=== PATIENT | female | born 1980 | race Caucasian/White ===

== ENCOUNTER 2022-01-02 04:35 | Emergency (ER) | payer MEDICAID, SELFPAY ==
[2022-01-02 04:36] VITALS: BP 120/90; PULSE 62; RESP 16; TEMP 36.7; O2SAT 98; BMI 23.9
--- NOTE | 2022-01-02 05:00 | CT_ITS ---
STUDY: CT BRAIN WITHOUT CONTRAST REASON FOR EXAM: Female, 41 years old. headache, injury RADIATION DOSAGE (If Supplied By Facility): CTDIvol = ( 44.99 ) mGy, DLP = ( 829.85 ) mGycm TECHNIQUE: Transaxial CT imaging of the brain was performed without administration of intravenous contrast material. Individualized dose optimization techniques were used for this CT. COMPARISON: No relevant priors. FINDINGS: Normal soft tissue structures. Normal calvarium. Normal size ventricles and extra-axial spaces for the patient''s age. Normal white matter tracts of the cerebral hemispheres. Normal basal ganglia and thalami. Normal brainstem. Normal cerebellum. There is no intracranial hemorrhage. There are no findings of an acute ischemic infarction. Normal visualized paranasal sinuses. CT/Brain/Head without Contrast IMPRESSION: Normal unenhanced CT scan of the brain. Electronically Signed: Daniele Falcon MD at 5:36 EDT ,
--- NOTE | 2022-01-02 05:01 | EDS_ITS ---
HPI History of Present Illness Chief Complaint: Headache Informant: patient Narrative Narrative: Patient is a 41-year-old female with history of long COVID, migraine headaches and hypothyroid presenting with worsening headache. Patient states she had a head injury 2 to 3 days ago. She states she hit her forehead on a shelf. She notes that she was recently put on Plavix for her long COVID. She states starting yesterday she developed a headache. She took Benadryl 12.5 mg of oral Benadryl. She woke up with worsening headache. She states the headache starts from the back of her neck and goes up her head and now around to her forehead. Denies any vision changes. Does have photophobia. Headache is worse when she leans her head down. Does have nausea but no vomiting. States it feels like a typical headache but she is more concerned because she is on the Plavix and had the head injury. Has received migraine cocktail in the past. Believes that she has had akathisias with Reglan at one time. [facility] Medical History Anxiety Chest pain Depression Hypothyroidism Migraines Home Medications ascorbic acid (vitamin C) [Vitamin C] 1 g PO DAILY 01/02/22 [History Last Taken Unknown] clopidogrel [Plavix] 75 mg PO DAILY 01/02/22 [History Last Taken Unknown] fenofibrate nanocrystallized 48 mg PO DAILY 01/02/22 [History Last Taken Unknown] levothyroxine 75 mcg PO DAILY 01/02/22 [History Last Taken Unknown] Allergy/AdvReac Type Severity Reaction Status Date / Time No Known Allergies Allergy Verified 01/02/22 04:46 Social History Smoking Status: Smoker, status unknown ROS ROS ED Constitutional Constitutional ED: Denies chills or fever(s) Eyes Eyes: Reports other Details: photophobia ; Denies blurry vision or change in vision ENT ENT ED: Reports rhinorrhea; Denies ear pain or sore throat Cardiovascular Cardiovascular: Denies chest pain Respiratory/Chest Respiratory/Chest: Denies dyspnea Gastrointestinal Gastrointestinal: Reports nausea; Denies abdominal pain or vomiting Genitourinary Genitourinary ED: Denies dysuria Musculoskeletal Musculoskeletal: Denies arthralgias, myalgias or neck pain Integumentary Denies rash Neurologic Neurologic: Reports headache(s); Denies paresthesias or weakness Psychiatric Psychiatric: Reports anxiety; Denies depression EXAM Physical Exam Const Vital Signs: 01/02/22 04:36 Temperature 98.0 F Temperature Source Oral Pulse Rate 62 Respiratory Rate 16 Blood Pressure 120/90 H Blood Pressure Mean 100 Pulse Ox 98 Oxygen Delivery Method Room Air Positive well nourished and well developed General Appearance ED: well developed and NAD HEENT Reports normocephalic, TM's clear and moist mucous membranes HEENT Narrative: No hemotympanum. No signs of basilar skull fracture. atraumatic Tympanic Membrane ED: Yes TM's clear Eyes PERRL and EOMs intact bilaterally Neck supple and no meningeal signs Neck Narrative: Normal range of motion. Resp normal respiratory effort and clear to auscultation bilaterally Cardio regular rate, regular rhythm and no murmurs GI non-distended Extremity normal to inspection and full ROM General Extremety ED: Negative for edema General Extremity: Negative for edema Neuro oriented x3, CN's II-XII intact bilaterally and no sensory deficits noted Sensorium / Orientation: awake and alert Speech: speech normal Motor Exam: strength 5/5 throughout Psych mental status grossly normal Skin Lesions: no lesions Rashes: no rashes MDM MDM MDM Narrative Medical decision making narrative: Patient had low velocity head injury 3 days ago. She is now having worsening headache. Headache is most consistent with her migraines however she is on Plavix will take a head CT. Will give IV fluids and Zofran. If head CT is negative we will give IV Toradol for further headache control. CT is negative for acute process. On repeat evaluation patient does have improvement. Will be discharged home to follow-up with primary care doctor. Patient will discuss her continued need for Plavix use with her PCP. Counseled return precautions. Patient is well-appearing. I do not suspect meningitis, subarachnoid hemorrhage or more severe cause of her headache. Radiography Diagnostic Testing: Clinical Impression(s) from Imaging Studies Brain CT 01/02/22 05:00 IMPRESSION: Normal unenhanced CT scan of the brain. Electronically Signed: Daniele Falcon MD at 5:36 EDT , Discharge Plan Triage Chief Complaint: Headache ED Provider: Lady Piña Dx/Rx/DC Orders Clinical Impression: Headache, Closed head injury Instructions: ED Headache Unspecified Prescriptions: No Action ascorbic acid (vitamin C) [Vitamin C] 1,000 mg Tablet 1 g PO DAILY RF: 0 clopidogrel [Plavix] 75 mg Tablet 75 mg PO DAILY RF: 0 levothyroxine 75 mcg Tablet 75 mcg PO DAILY RF: 0 fenofibrate nanocrystallized 48 mg Tablet 48 mg PO DAILY RF: 0 Primary Care Provider: Ga Clemente Referrals: Ga Clemente MD [Primary Care Provider] - Disposition Disposition: Home, Self Care
[2022-01-02] MEDS: 0.9% Normal Saline 1,000 ML 999 ML IV (05:08)
[2022-01-02] MEDS: Ondansetron 4 MG/2 ML Vial IV (05:09)
[2022-01-02] MEDS: Ketorolac 15 MG/ML Vial IV (06:17)
[2022-01-02 06:33] VITALS: BP 127/69; PULSE 71; RESP 15; O2SAT 98
== END 2022-01-02 06:34 | disposition home or self-care (01) ==
PROVIDERS: Emergency Provider Emergency Medicine; PCP Family Medicine; Visit Provider Emergency Medicine
DX: R51.9 Headache, unspecified (principal); S09.90XA Unspecified injury of head, initial encounter; W22.09XA Striking against other stationary object, initial encounter; U09.9 Post COVID-19 condition, unspecified; R11.0 Nausea; E03.9 Hypothyroidism, unspecified; Z79.02 Long term (current) use of antithrombotics/antiplatelets; Z79.890 Hormone replacement therapy; Z79.899 Other long term (current) drug therapy
CPT/HCPCS: 70450; 96361; 96374; 96375; 99283; J7030; J2405

== ENCOUNTER 2022-02-12 05:44 | Emergency (ER) | payer MEDICAID, SELFPAY ==
[2022-02-12 05:44] VITALS: BP 112/79; PULSE 65; RESP 20; TEMP 36.6; O2SAT 100; BMI 24.1
[2022-02-12] MEDS: Amox/Clavulanate 875 MG Tablet PO (06:17)
--- NOTE | 2022-02-12 06:18 | EX.ED.VIS.UR ---
HPI HPI - URI History of Present Illness Chief Complaint: Ear Problem Informant: patient Onset/Context/Timing Onset: Today Context: - (Awoke with symptoms) Timing: Continuous Quality: Pressure, acute pain Location: Right ear Current Severity: Moderate Maximum Severity: Severe Worsened by: - (Burping, increasing air pressure in her nose by blowing against held nose) Relieved by: Not Relieved By NSAIDs (Took 800 mg this morning) Associated Symptoms Associated Symptoms: Positive for Nasal Congestion, Headache and Nonproductive cough; Negative for Shortness of Breath Narrative Narrative: Patient has had cold symptoms for the past 4 or 5 days, including hoarseness, myalgias, low-grade fever at the beginning but not since, cough is pretty minimal, but more congestion and now she woke up this morning with a terrible right earache. She can get her left ear to pop, but not the other. No otorrhea. No recent swimming. No fevers or chills or headache now. Is vaccinated against COVID, has not done a COVID test since the beginning of this illness. No known contact with anyone with COVID that she knows of. ROS ROS ED Constitutional Constitutional ED: Reports body ache(s), chills, fatigue, fever(s), headache(s) and malaise Eyes Eyes: Denies change in vision or diplopia ENT ENT ED: Reports ear pain right, hoarseness, nasal congestion and rhinorrhea; Denies sore throat Cardiovascular Cardiovascular: Denies chest pain or palpitations Respiratory/Chest Respiratory/Chest: Reports cough; Denies dyspnea or dyspnea on exertion Gastrointestinal Gastrointestinal: Reports diarrhea and nausea; Denies abdominal pain or vomiting Genitourinary Genitourinary ED: Denies dysuria or hematuria Musculoskeletal Musculoskeletal: Denies back pain or neck pain Integumentary Denies abscess or rash Neurologic Neurologic: Reports headache(s); Denies paresthesias or weakness Psychiatric Psychiatric: Denies anxiety or suicidal thoughts [facility] Medical History Anxiety Chest pain Depression Hypothyroidism Migraines Home Medications ascorbic acid (vitamin C) 1,000 mg tablet (Vitamin C) 1 g PO DAILY 01/02/22 [History Last Taken Unknown] levothyroxine 75 mcg tablet 75 mcg PO DAILY 01/02/22 [History Last Taken Unknown] amoxicillin 875 mg-potassium clavulanate 125 mg tablet 875 mg PO Q12H #20 TABLETS 02/12/22 [Rx Last Taken Unknown] tramadol 50 mg tablet 50 - 100 mg PO Q4H PRN PRN Pain 2 days #12 tabs 02/12/22 [Rx Last Taken Unknown] Allergy/AdvReac Type Severity Reaction Status Date / Time No Known Allergies Allergy Verified 01/02/22 04:46 Social History Smoking Status: Never smoker EXAM Physical Exam Const Vital Signs: 02/12/22 05:44 Temperature 97.8 F Temperature Source Oral Pulse Rate 65 Respiratory Rate 20 H Blood Pressure 112/79 Blood Pressure Mean 90 Pulse Ox 100 Oxygen Delivery Method Room Air Positive well nourished and well developed Constitutional Narrative: Malaised-appearing, no distress General Appearance ED: well developed and NAD HEENT Reports moist mucous membranes HEENT Narrative: Hoarseness of voice no stridor. Right TM bulging, purulent effusion, no perforation. Left TM mildly erythematous no bulging, no effusion. Both EACs normal, no pain with manipulation of the pinna or tragus. normocephalic and atraumatic Eyes PERRL and EOMs intact bilaterally Neck full ROM and supple Resp normal respiratory effort and clear to auscultation bilaterally Cardio regular rate, regular rhythm and no murmurs Rate: Negative for tachycardic Back/Spine no CVA tenderness General Back: other FROM Extremity normal to inspection and no calf tenderness General Extremety ED: Negative for edema, pulses abnormal or tenderness General Extremity: Negative for edema or pulses abnormal Neuro oriented x3, CN's II-XII intact bilaterally and no sensory deficits noted Sensorium / Orientation: awake and alert Motor Exam: strength 5/5 throughout Skin no rashes or lesions noted and no wounds MDM MDM MDM Narrative Medical decision making narrative: I performed a rapid COVID swab on this patient, it is negative. We are having a surge of omicron 4-5 right now. She does appear to have a right otitis media. Offered her a tramadol but she is driving home so she will take it when she gets there, start her on Augmentin and wrote her a prescription for a 10-day course, also we discussed decongestants as well. Discharge Plan Triage Chief Complaint: Ear Problem ED Provider: Neftali David Dx/Rx/DC Orders Clinical Impression: Acute right otitis media, Acute viral syndrome Instructions: ED Otitis Media Antibiotic ... Prescriptions: New tramadol 50 mg tablet 50 - 100 mg PO Q4H PRN PRN (Reason: Pain) 2 Days Qty: 12 0RF amoxicillin-pot clavulanate [amoxicillin-pot clavulanate] 875-125 mg tablet 875 mg PO Q12H Qty: 20 0RF No Action ascorbic acid (vitamin C) [Vitamin C] 1,000 mg Tablet 1 g PO DAILY levothyroxine 75 mcg Tablet 75 mcg PO DAILY Primary Care Provider: Ga Clemente Referrals: Ga Clemente MD [Primary Care Provider] - 3-5 Days if not improving Disposition Disposition: Home, Self Care
[2022-02-12 07:05] VITALS: BP 99/66; PULSE 71; RESP 18; O2SAT 98
== END 2022-02-12 07:07 | disposition home or self-care (01) ==
PROVIDERS: Emergency Provider Emergency Medicine; PCP Family Medicine; Visit Provider Emergency Medicine
DX: H66.91 Otitis media, unspecified, right ear (principal); B34.9 Viral infection, unspecified; R51.9 Headache, unspecified; R09.81 Nasal congestion; Z20.822 Contact with and (suspected) exposure to COVID-19; R05.9 Cough, unspecified; R19.7 Diarrhea, unspecified; R11.0 Nausea; E03.9 Hypothyroidism, unspecified; Z79.890 Hormone replacement therapy
CPT/HCPCS: 87811; 99282

== ENCOUNTER 2022-03-10 12:02 | Emergency (ER) | payer OTHER, MEDICAID, SELFPAY ==
[2022-03-10 12:02] VITALS: BP 114/64; PULSE 80; RESP 14; TEMP 36.5; O2SAT 98; BMI 23.6
--- NOTE | 2022-03-10 12:16 | EX.ED.DYSGE1 ---
HPI History of Present Illness Chief Complaint: Ear Problem Detail of Chief Complaint: Left ear pain Informant: patient Narrative Narrative: Patient presents the emergency department with discomfort in her left ear. Patient is concerned that she may have or may develop a rupture of her tympanic membrane. Patient states that several weeks ago she was seen in the ER with symptoms similar to what she started developing yesterday and while in the ER her tympanic membrane ruptured. Patient feels like the right tympanic membrane rupture healed and her hearing is back to normal. Patient does see an ear nose and throat physician and is scheduled to see him next week. Patient also states that 2 days ago her tested positive for COVID-19. She started with a slight sore throat yesterday. Patient also with history of her Erler Danlos syndrome. Patient believes she has eustachian tube dysfunction related to that. PFSH PFS Medical History Anxiety Chest pain Depression Hypothyroidism Migraines Home Medications ascorbic acid (vitamin C) 1,000 mg tablet (Vitamin C) 1 g PO DAILY 01/02/22 [History Last Taken Unknown] levothyroxine 75 mcg tablet 75 mcg PO DAILY 01/02/22 [History Last Taken Unknown] Allergy/AdvReac Type Severity Reaction Status Date / Time No Known Allergies Allergy Verified 03/10/22 12:05 Social History Smoking Status: Never smoker ROS ROS ED Review of Systems ROS Unobtainable: other Constitutional Constitutional ED: Reports lethargy; Denies chills, fever(s), sweats or weight loss Eyes Eyes: Denies blurry vision, change in vision or diplopia ENT ENT ED: Reports ear pain and sore throat; Denies rhinorrhea Cardiovascular Cardiovascular: Reports chest pain and racing heartbeat; Denies orthopnea Respiratory/Chest Respiratory/Chest: Reports dyspnea and dyspnea on exertion; Denies cough, orthopnea or sputum Gastrointestinal Gastrointestinal: Denies abdominal pain, diarrhea, nausea or vomiting Genitourinary Genitourinary ED: Denies dysuria, hematuria or urinary frequency Musculoskeletal Musculoskeletal: Denies arthralgias, back pain, myalgias or neck pain Integumentary Denies abscess, Abrasions or rash Neurologic Neurologic: Denies headache(s) or weakness Psychiatric Psychiatric: Denies anxiety, depression or suicidal thoughts Endocrine Endocrinology: Denies polydipsia, polyphagia or polyuria Hematologic/Lymphatic Hematologic/Lymphatic: Denies easy bleeding, easy bruising or lymphadenopathy Allergic/Immunologic Allergic/Immunologic ED: Denies mouth swelling, tongue swelling or urticaria EXAM Physical Exam Const Vital Signs: 03/10/22 12:02 Temperature 97.7 F L Temperature Source Temporal Pulse Rate 80 Respiratory Rate 14 Blood Pressure 114/64 Blood Pressure Mean 80 Pulse Ox 98 Oxygen Delivery Method Room Air Positive well nourished and well developed General Appearance ED: well developed and NAD HEENT Reports TM's clear and moist mucous membranes normocephalic and atraumatic; Negative for trauma or tenderness Tympanic Membrane ED: Yes TM's clear Eyes PERRL and EOMs intact bilaterally General Eye ED: Negative for pale conjunctiva or scleral icterus Neck no lymphadenopathy, supple and no JVD General: Negative for tenderness Chest Wall inspection of chest normal and palpation of chest normal Chest: Negative for tenderness Resp normal respiratory effort and clear to auscultation bilaterally Effort and Inspection: Negative for respiratory distress or pain with movement Auscultation: Negative for rhonchi, wheezes or diminished lung sounds Cardio regular rate, regular rhythm, S1 normal heart sound, S2 normal heart sound and no murmurs Peripheral Pulses: pulses 2+ throughout GI normal to inspection, nondistended, normoactive bowel sounds, soft to palpation, non-tender, non-distended and no masses Back/Spine no CVA tenderness and no thoracic nor lumbar tenderness Extremity normal to inspection General Extremety ED: Negative for edema General Extremity: Negative for edema Neuro oriented x3, CN's II-XII intact bilaterally, no sensory deficits noted and gait normal Sensorium / Orientation: awake, alert, oriented to person, oriented to place and oriented to time Motor Exam: strength 5/5 throughout and strength abnormal Psych mental status grossly normal Skin no rashes or lesions noted and no wounds MDM MDM MDM Narrative Medical decision making narrative: Patient does not have any signs of ear infection. I do not appreciate excessive fluid behind the eardrums. Right eardrum appears to have healed. Left eardrum is intact and I am able to visualize landmarks. I did do a COVID-19 test which was negative. Recommended she repeat a test in 2 to 3 days. Patient advised to use Zyrtec or Claritin if increased ear pressure and also to follow-up with ear nose and throat physician. Lab Data Attestation: I reviewed the patient's lab results. Discharge Plan Triage Chief Complaint: Ear Problem ED Provider: Zelalem Sanchez Dx/Rx/DC Orders Clinical Impression: Left ear pain, Acute viral syndrome Instructions: ED Earache Without Infection (Adult), ED Viral Syndrome (Adult) Prescriptions: No Action ascorbic acid (vitamin C) [Vitamin C] 1,000 mg Tablet 1 g PO DAILY levothyroxine 75 mcg Tablet 75 mcg PO DAILY Primary Care Provider: Ga Clemente Referrals: Ga Clemente MD [Primary Care Provider] - 3-5 Days Activity Restrictions/Additional Instructions: Keep your appointment with your ear nose and throat physician. Repeat a home COVID test in 2 to 3 days. Disposition Disposition: Home, Self Care
[2022-03-10 12:56] VITALS: RESP 16
== END 2022-03-10 13:02 | disposition home or self-care (01) ==
PROVIDERS: Emergency Provider Emergency Medicine; PCP Family Medicine; Visit Provider Emergency Medicine
DX: B34.9 Viral infection, unspecified (principal); H92.02 Otalgia, left ear; Z20.822 Contact with and (suspected) exposure to COVID-19; Q79.60 Ehlers-Danlos syndrome, unspecified; E03.9 Hypothyroidism, unspecified; Z79.890 Hormone replacement therapy; Z79.899 Other long term (current) drug therapy
CPT/HCPCS: 87811; 99282

== ENCOUNTER 2022-07-22 16:54 | Emergency (ER) | payer OTHER, MEDICAID, SELFPAY ==
[2022-07-22 16:55] VITALS: BP 122/105; PULSE 69; RESP 16; TEMP 36.7; O2SAT 98; BMI 22.9
[2022-07-22 17:46] VITALS: BP 100/50
--- NOTE | 2022-07-22 17:48 | ED.RN ---
pt stating I think I am going to leave and call my PCP in the morning. All questions and BP rechecked per pt request.
== END 2022-07-22 17:48 | disposition left against medical advice (07) ==
LOC: ED 17:51
PROVIDERS: PCP Family Medicine
DX: Z53.21 Procedure and treatment not carried out due to patient leaving prior to being seen by health care provider (principal)